=== PATIENT | female | born 1940 | race Caucasian/White ===

== ENCOUNTER → 2021-11-26 13:10 | Outpatient (CLI) | payer MEDICARE, SELFPAY ==
--- NOTE | 2021-11-26 13:21 | XR_ITS ---
FINAL REPORT CLINICAL HISTORY: pain FINDINGS: RIGHT FOOT: Three weight-bearing views of the right foot were obtained. There is no acute fracture or dislocation. 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 There is a plantar calcaneal spur. 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 Reviewed, Interpreted and Dictated by Oz Rebolledo III, MD Transcribed by Ramírez Sevilla Authenticated by Oz Rebolledo III, MD on 11/26/2021 03:03:16 PM [facility]
--- NOTE | 2021-11-26 13:21 | XR_ITS ---
FINAL REPORT CLINICAL HISTORY: pain FINDINGS: LEFT FOOT: Three weight-bearing views of the left foot were obtained. There is no acute fracture or dislocation. 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 There is a plantar calcaneal spur. 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 Reviewed, Interpreted and Dictated by Oz Rebolledo III, MD Transcribed by Ramírez Sevilla Authenticated by Oz Rebolledo III, MD on 11/26/2021 03:03:02 PM [facility]
== END ==
PROVIDERS: PCP Emergency Medicine; Visit Provider Podiatrist
DX: M79.672 Pain in left foot (principal); M79.671 Pain in right foot
CPT/HCPCS: 73630